=== PATIENT | male | born 1990 | race African-American/Black ===

== ENCOUNTER 2017-02-02 10:30 | Inpatient (IN) | payer OTHER ==
[2017-02-02 11:39] VITALS: BMI 21.7
[2017-02-02] MEDS ORDERED: LOPERAMIDE HCL 2 MG CAPSULE PO PRN (12:18)
[2017-02-02] MEDS ORDERED: diphenhydrAMINE HCL 50 MG CAPSULE PO PRN (12:18)
[2017-02-02] MEDS ORDERED: P-EPHED 60MG/TRIPROLIDI 2.5MG TABLET PO PRN (12:18)
[2017-02-02] MEDS ORDERED: NICOTINE POLACRILEX 2 MG GUM BC PRN (12:18)
[2017-02-02] MEDS ORDERED: MAGNESIUM CITRATE 300 ML BOTTLE PO PRN (12:18)
[2017-02-02] MEDS ORDERED: IBUPROFEN 400 MG TABLET (FP) PO PRN (12:18)
[2017-02-02] MEDS ORDERED: MAGNESIUM HYDROX 2400MG/30ML ORAL SUSPENSION 30 ML CUP PO PRN (12:18)
[2017-02-02] MEDS ORDERED: MENTHOL/PHENOL 1 EACH UD MM PRN (12:18)
[2017-02-02] MEDS ORDERED: hydrOXYzine PAMOATE 50 MG CAPSULE (FP) PO PRN (12:18)
[2017-02-02] MEDS ORDERED: guaiFENesin/D-METHORPHAN HB 10 ML UNIT-DOSE CUPS PO PRN (12:18)
[2017-02-02] MEDS ORDERED: ACETAMINOPHEN 325 MG TABLET (FP) PO PRN (12:18)
[2017-02-02] MEDS ORDERED: MAG HYDROX/AL HYDROX/SIMETH 30 ML UNIT-DOSE CUP PO PRN (12:18)
--- NOTE | 2017-02-02 12:28 | HP ---
COWS - Scale Resting Pulse: 0= [place] 80 or Below Sweatin=Flushed/Facial Moisture Restless Observation: 3= Extraneous Movement Pupil Size: 2= Moderately Dilated Bone or Joint Aches: 2= Severe Diffuse Aches Runny Nose/ Eye Tearin= Runny Nose/Eyes GI Upset > 30mins: 2= Nausea/Diarrhea Tremor Observation: 2= Slight Tremor Visible Yawning Observation: 2= >3x During Session Anxiety or Irritability: 2=Irritable/Anxious Goose Flesh Skin: 3=Piloerection COWS Score: 22 CIWA Score - CIWA Score Nausea/Vomitin Muscle Tremors: 4-Moderate,w/Arms Extend Anxiety: 4-Mod. Anxious/Guarded Agitation: 4-Moderately Restless Paroxysmal Sweats: 3 Orientation: 0-Oriented Tacttile Disturbances: 0-None Auditory Disturbances: 0-None Visual Disturbances: 0-None Headache: 0-None Present CIWA-Ar Total Score: 17 Admission ROS BHS - HPI Chief Complaint: Withdrawal sx. Allergies/Adverse Reactions: Allergies Allergy/AdvReac Type Severity Reaction Status Date / Time No Known Allergies Allergy Verified 02/02/17 12:06 History of Present Illness: 26 y/o man with hx. of heroin,alcohol & klonopin dependence is admitted for detox. Pt. has been in previous detox,denies significant period drug free. Exam Limitations: No Limitations - Ebola screening Have you traveled outside of the country in the last 21 days: No Have you had contact with anyone from an Ebola affected area: No Have you been sick,other than usual withdrawal symptoms: No - Review of Systems Constitutional: Diaphoresis EENT: reports: Nose Congestion Respiratory: reports: No Symptoms reported Cardiac: reports: No Symptoms Reported GI: reports: Nausea, Abdominal cramping : reports: No Symptoms Reported Musculoskeletal: reports: Back Pain, Joint Pain, Muscle Pain Integumentary: reports: Sweating Neuro: reports: Seizure (1st & last in 2011), Tremors Endocrine: reports: No Symptoms Reported Hematology: reports: No Symptoms Reported Psychiatric: reports: No Sypmtoms Reported Other Systems: Reviewed and Negative Patient History - Patient Medical History Hx Anemia: No Hx Asthma: No Hx Chronic Obstructive Pulmonary Disease (COPD): No Hx Cancer: No Hx Cardiac Disorders: No Hx Congestive Heart Failure: No Hx Hypertension: No Hx Hypercholesterolemia: No Hx Pacemaker: No HX Cerebrovascular Accident: No Hx Seizures: Yes (2011) Hx Dementia: No Hx Diabetes: No Hx Gastrointestinal Disorders: No Hx Liver Disease: Yes (hep c) Hx Genitourinary Disorders: No Hx Sexually Transmitted Disorders: No Hx Renal Disease (ESRD): No Hx Thyroid Disease: No Hx Human Immunodeficiency Virus (HIV): No Hx Hepatitis C: Yes (needs treatment) Hx Depression: Yes (lexapro prescribed but does not take it.Remeron) Hx Suicide Attempt: No Hx Bipolar Disorder: No Hx Schizophrenia: No - Patient Surgical History Past Surgical History: Yes Hx Abdominal Surgery: Yes (lt. inguinal hernia repair) - PPD History Previous Implant?: Yes Documented Results: Negative w/o proof PPD to be Administered?: Yes - Smoking Cessation Smoking history: Current every day smoker Have you smoked in the past 12 months: Yes Aproximately how many cigarettes per day: 20 Hx Chewing Tobacco Use: No Initiated information on smoking cessation: Yes 'Breaking Loose' booklet given: 02/02/17 - Substance & Tx. History Hx Alcohol Use: Yes Hx Substance Use: Yes Substance Use Type: Alcohol, Cocaine, Heroin Hx Substance Use Treatment: Yes (Detox) - Substances Abused Alcohol Route: Oral Frequency: Daily Amount used: vodka 1 pint Age of first use: 19 Date of Last Use: 02/01/17 Benzodiazepine (Klonopin) Route: Oral Frequency: Daily Amount used: 2mg Age of first use: 21 Date of Last Use: 02/01/17 Heroin Route: Injection Frequency: Daily Amount used: 6-7 bags Age of first use: 21 Date of Last Use: 02/01/17 Cocaine Route: Injection Frequency: Daily Amount used: $100.00 Age of first use: 25 Date of Last Use: 02/02/17 Family Disease History - Family Disease History Family Disease History: Heart Disease: Grandparent ([place],Stroke), Other: Grandparent, Mother (OD on heroin) Admission Physical Exam S - Vital Signs Vital Signs: Vital Signs - 24 hr 02/02/17 11:35 Temperature 98.1 F Pulse Rate 64 Respiratory 18 Rate Blood Pressure 125/57 - Physical General Appearance: Yes: Tremorous, Irritable, Sweating, Anxious HEENTM: Yes: Nasal Congestion, Rhinorrhea Respiratory: Yes: Chest Non-Tender, Lungs Clear, Normal Breath Sounds Neck: Yes: Supple Breast: Yes: Breast Exam Deferred Cardiology: Yes: Regular Rhythm, Regular Rate, S1, S2 Abdominal: Yes: Normal Bowel Sounds, Non Tender, Flat, Soft Genitourinary: Yes: Within Normal Limits Musculoskeletal: Yes: Within Normal Limits Extremities: Yes: Tremors Neurological: Yes: Fully Oriented, Alert Integumentary: Yes: Diaphoresis Lymphatic: Yes: Within Normal Limits - Diagnostic (1) Opioid dependence with withdrawal Current Visit: Yes Status: Acute (2) Sedative, hypnotic or anxiolytic dependence with withdrawal, uncomplicated Current Visit: Yes Status: Acute (3) Alcohol dependence with uncomplicated withdrawal Current Visit: Yes Status: Acute (4) Hep C w/o coma, chronic Current Visit: Yes Status: Acute Cleared for Admission [facility] - Detox or Rehab [facility] Level of Care: Medically Managed Detox Regimen/Protocol: Methadone/Valium [facility] Breath Alcohol Content Breath Alcohol Content: 0 Urine Drug Screen - Results Urine Drug Screen Results: MARIA EUGENIA-Cocaine, OPI-Opiates, MTD-Methadone
[2017-02-02] MEDS ORDERED: diazePAM 5 MG TABLET PO ONE (13:45)
[2017-02-02] MEDS ORDERED: METHADONE HCL 10 MG TABLET (FOR DETOX USE ONLY) PO ONE ×2 (13:45→23:00)
--- NOTE | 2017-02-02 14:24 | CONSULT ---
[facility] Psychiatric Consult - Data Date of interview: 02/02/17 Admission source: [facility] Identifying data: This is 26 years old male with psychiatric hospitalization history intoxicated with:". Alcohol, Opioids, Cocaine and Xanax Substance Abuse History: - Smoking Cessation. Smoking history: Current every day smoker. Have you smoked in the past 12 months: Yes. Aproximately how many cigarettes per day: 20. Hx Chewing Tobacco Use: No. Initiated information on smoking cessation: Yes. 'Breaking Loose' booklet given: 02/02/17. - Substance & Tx. History. Hx Alcohol Use: Yes. Hx Substance Use: Yes. Substance Use Type : Alcohol, Cocaine, Heroin. Hx Substance Use Treatment: Yes (Detox). - Substances Abused. Alcohol. Route: Oral. Frequency: Daily. Amount used: vodka 1 pint. Age of first use: 19. Date of Last Use: 02/01/17. Benzodiazepine (Klonopin). Route: Oral. Frequency: Daily. Amount used: 2mg. Age of first use: 21. Date of Last Use: 02/01/17. Heroin. Route: Injection. Frequency: Daily. Amount used: 6-7 bags. Age of first use: 21. Date of Last Use: 02/01/17. Cocaine. Route: Injection. Frequency: Daily. Amount used: $100.00. Age of first use: 25. Date of Last Use: 02/02/17 Medical History: HepC+ Psychiatric History: Patient reports history of anxiety and insomnia, reportas taking prior to admission: Remeron 15mg po qhs Physical/Sexual Abuse/Trauma History: Denies Additional Comment: Remeron 15mg po qhs Mental Status Exam - Mental Status Exam Alert and Oriented to: Person Cognitive Function: Fair Patient Appearance: Well Groomed Mood: Anxious Affect: Mood Congruent Patient Behavior: Talkative Speech Pattern: Appropriate Voice Loudness: Mildly Loud Thought Process: Goal Oriented Thought Disorder: Being Controlled Hallucinations: Denies Suicidal Ideation: Denies Homicidal Ideation: Denies Insight/Judgement: Fair Sleep: Fair Appetite: Weight loss Muscle strength/Tone: Normal Gait/Station: Normal Additional Comments: Remeron 15mg po qhs Psychiatric Findings - Problem List ([place] 1, 2,3) (1) Alcohol dependence with uncomplicated withdrawal Current Visit: Yes Status: Acute (2) Opioid dependence with withdrawal Current Visit: Yes Status: Acute (3) Sedative, hypnotic or anxiolytic dependence with withdrawal, uncomplicated Current Visit: Yes Status: Acute (4) Drug-induced mood disorder Current Visit: Yes Status: Acute - Initial Treatment Plan Initial Treatment Plan: Remeron 15mg po qhs
[2017-02-02] MEDS: diazePAM 5 MG TABLET PO SCH ×2 (15:10→22:22)
[2017-02-02] MEDS: NICOTINE 21 MG/24 HOURS TOPICAL PATCH TD SCH (15:18)
[2017-02-02 18:19] LABS: URINE APPEARANCE CLEAR; URINE BILIRUBIN NEGATIVE (NEGATIVE); URINE BLOOD NEGATIVE (NEGATIVE); URINE COLOR YELLOW; URINE GLUCOSE (UA) NEGATIVE (NEGATIVE); URINE KETONE NEGATIVE (NEGATIVE); URINE LEUK ESTERASE NEGATIVE (NEGATIVE); URINE NITRITE NEGATIVE (NEGATIVE); URINE PROTEIN NEGATIVE (NEGATIVE); URINE UROBILINOGEN NEGATIVE E.U./dl (0.2-1.0)
[2017-02-02] MEDS: THIAMINE HCL 100 MG TABLET (FP) PO SCH (22:22)
[2017-02-02] MEDS: MIRTAZAPINE 15 MG TABLET (FP) PO SCH (22:22)
[2017-02-03] MEDS: diazePAM 5 MG TABLET PO SCH ×3 (05:49→22:18)
--- NOTE | 2017-02-03 09:23 | EKG ---
Test Reason : Blood Pressure : / mmHG Vent. Rate : 049 BPM Atrial Rate : 049 BPM P-R Int : 152 ms QRS Dur : 088 ms QT Int : 478 ms P-R-T Axes : 070 084 066 degrees QTc Int : 431 ms SINUS BRADYCARDIA WITH SINUS ARRHYTHMIA ABNORMAL ECG WHEN COMPARED WITH ECG OF 02-FEB-2017 14:30, QT HAS SHORTENED Confirmed by AMY MCMAHON MD ([id number]) on 02/03/2017 9:22:41 AM Referred By: Confirmed By:AMY MCMAHON MD
--- NOTE | 2017-02-03 09:25 | EKG ---
Test Reason : Blood Pressure : / mmHG Vent. Rate : 060 BPM Atrial Rate : 060 BPM P-R Int : 150 ms QRS Dur : 084 ms QT Int : 476 ms P-R-T Axes : 027 080 061 degrees QTc Int : 476 ms NORMAL SINUS RHYTHM WITH SINUS ARRHYTHMIA T WAVE ABNORMALITY, CONSIDER ANTERIOR ISCHEMIA PROLONGED QT ABNORMAL ECG NO PREVIOUS ECGS AVAILABLE Confirmed by AMY MCMAHON MD ([id number]) on 02/03/2017 9:25:03 AM Referred By: Confirmed By:AMY MCMAHON MD
[2017-02-03] MEDS ORDERED: METHADONE HCL 10 MG TABLET (FOR DETOX USE ONLY) PO SCH (10:00)
[2017-02-03 10:10] LABS: MCH 29.1 pg (25.7-33.7); MCHC 33.4 g/dl (32.0-35.9); MEAN CELL VOLUME 87.1 fl (80-96); MEAN PLT VOLUME 8.1 fl (7.5-11.1); PLATELET COUNT 256 K/MM3 (134-434); RDW 13.5 % (11.9-15.9); WHITE BLOOD COUNT 7.7 K/mm3 (4.0-10.0)
[2017-02-03] MEDS: PRENATAL VITAMINS W/ FOLIC ACID TABLET (FP) PO SCH (11:00)
[2017-02-03] MEDS: NICOTINE 21 MG/24 HOURS TOPICAL PATCH TD SCH (11:00)
[2017-02-03] MEDS: diazePAM 5 MG TABLET PO PRN (11:00)
[2017-02-03 11:38] LABS: SICKLE CELL SCREEN NEGATIVE (NEGATIVE)
[2017-02-03 12:27] LABS: ALBUMIN 3.4 g/dl (3.4-5.0); ALK PHOS 46 U/L (45-117); ANION GAP 8 (8-16); BILIRUBIN,TOTAL 0.5 mg/dL (0.2-1.0); CALCIUM 9.5 mg/dL (8.5-10.1); CO2 30 mmol/L (21-32); COCKROFT - GAULT 128.79; CREATININE 0.9 mg/dL (0.7-1.3); GLUCOSE,RANDOM 96 mg/dL (74-106); SGOT/AST 36 U/L (15-37); SGPT/ALT 61 U/L (12-78); TOT PROT 6.9 g/dl (6.4-8.2)
--- NOTE | 2017-02-03 12:38 | PN ---
[facility] CIWA - CIWA Score Nausea/Vomitin-Mild Nausea/No Vomiting Muscle Tremors: 4-Moderate,w/Arms Extend Anxiety: 4-Mod. Anxious/Guarded Agitation: 3 Paroxysmal Sweats: 3 Orientation: 0-Oriented Tacttile Disturbances: 0-None Auditory Disturbances: 0-None Visual Disturbances: 0-None Headache: 0-None Present CIWA-Ar Total Score: 15 S COWS - Scale Resting Pulse: 0= [place] 80 or Below Sweatin=Flushed/Facial Moisture Restless Observation: 1= Difficult to Sit Still Pupil Size: 0= Normal to Room Light Bone or Joint Aches: 1= Mild Discomfort Runny Nose/ Eye Tearin= Runny Nose/Eyes GI Upset > 30mins: 2= Nausea/Diarrhea Tremor Observation of Outstretched Hands: 2= Slight Tremor Visible Yawning Observation: 1= 1-2x During Session Anxiety or Irritability: 2=Irritable/Anxious Goose Flesh Skin: 0=Smooth Skin COWS Score: 13 S Progress Note (SOAP) Subjective: Anxiety,tremors,sweating,interrupted sleep,restless,muscle aches/spasm. Objective: 02/03/17 12:37 Vital Signs - 8 hr 02/03/17 02/03/17 06:14 09:18 Temperature 97.3 F L 97.2 F L Pulse Rate 63 61 Respiratory 16 18 Rate Blood Pressure 92/61 117/68 Laboratory Tests 02/02/17 02/03/17 15:44 07:00 WBC 7.7 RBC 4.69 Hgb 13.6 Hct 40.8 MCV 87.1 MCHC 33.4 RDW 13.5 Plt Count 256 MPV 8.1 Sickle Cell Screen Negative Urine Color Yellow Urine Appearance Clear Urine pH 5.0 Ur Specific [place] 1.020 Urine Protein Negative Urine Glucose (UA) Negative Urine Ketones Negative Urine Blood Negative Urine Nitrite Negative Urine Bilirubin Negative Urine Urobilinogen Negative Ur Leukocyte Esterase Negative labs noted Assessment: 02/03/17 12:37 Withdrawal sx. Plan: Continue detox
[2017-02-03 13:03] LABS: PLATELET ESTIMATE ADEQUATE (NORMAL)
[2017-02-03] MEDS: MIRTAZAPINE 15 MG TABLET (FP) PO SCH (22:18)
[2017-02-03] MEDS: THIAMINE HCL 100 MG TABLET (FP) PO SCH (22:18)
[2017-02-04] MEDS ORDERED: diazePAM 5 MG TABLET PO SCH (10:00)
[2017-02-04] MEDS ORDERED: METHADONE HCL 5 MG TABLET (FOR DETOX USE ONLY) PO SCH (10:00)
[2017-02-04] MEDS: PRENATAL VITAMINS W/ FOLIC ACID TABLET (FP) PO SCH (10:16)
[2017-02-04] MEDS: NICOTINE 21 MG/24 HOURS TOPICAL PATCH TD SCH (10:16)
--- NOTE | 2017-02-04 10:57 | PN ---
S CIWA - CIWA Score Nausea/Vomitin Muscle Tremors: 2 Anxiety: 2 Agitation: 2 Paroxysmal Sweats: 2 Orientation: 0-Oriented Tacttile Disturbances: 1-Very Mild Itch/Numbness Auditory Disturbances: 1-Very Mild Visual Disturbances: 1-Very Mild Sensitivity Headache: 2-Mild CIWA-Ar Total Score: 15 BHS COWS - Scale Resting Pulse: 1= [place] 81-100 Sweatin= Chills/Flushing Restless Observation: 1= Difficult to Sit Still Pupil Size: 0= Normal to Room Light Bone or Joint Aches: 2= Severe Diffuse Aches Runny Nose/ Eye Tearin= Nasal Congestion GI Upset > 30mins: 2= Nausea/Diarrhea Tremor Observation of Outstretched Hands: 2= Slight Tremor Visible Yawning Observation: 1= 1-2x During Session Anxiety or Irritability: 2=Irritable/Anxious Goose Flesh Skin: 3=Piloerection COWS Score: 16 BHS Progress Note (SOAP) Subjective: interrupted sleep,sweats, shakes and generalized pain Objective: 02/04/17 10:59 Vital Signs - 8 hr 02/04/17 02/04/17 03:30 10:18 Temperature 97.4 F L Pulse Rate 91 H Respiratory 18 20 Rate Blood Pressure 122/80 Laboratory Last Values WBC 7.7 K/mm3 (4.0-10.0) 02/03/17 07:00 RBC 4.69 M/mm3 (4.00-5.60) 02/03/17 07:00 Hgb 13.6 GM/dL (11.7-16.9) 02/03/17 07:00 Hct 40.8 % (35.4-49) 02/03/17 07:00 MCV 87.1 fl (80-96) 02/03/17 07:00 MCHC 33.4 g/dl (32.0-35.9) 02/03/17 07:00 RDW 13.5 % (11.9-15.9) 02/03/17 07:00 Plt Count 256 K/MM3 (134-434) 02/03/17 07:00 MPV 8.1 fl (7.5-11.1) 02/03/17 07:00 Neutrophils % 25.0 % (42.8-82.8) L 02/03/17 07:00 Lymphocytes % 65.0 % (8-40) H 02/03/17 07:00 Monocytes % 5.0 % (3.8-10.2) 02/03/17 07:00 Eosinophils % 5.0 % (0-4.5) H 02/03/17 07:00 Differential Comment Manual diff done 02/03/17 07:00 Platelet Estimate Adequate (NORMAL) 02/03/17 07:00 Sickle Cell Screen Negative (NEGATIVE) 02/03/17 07:00 Sodium 141 mmol/L (136-145) 02/03/17 07:00 Potassium 4.5 mmol/L (3.5-5.1) 02/03/17 07:00 Chloride 103 mmol/L (98-107) 02/03/17 07:00 Carbon Dioxide 30 mmol/L (21-32) 02/03/17 07:00 Anion Gap 8 (8-16) 02/03/17 07:00 BUN 14 mg/dL (7-18) 02/03/17 07:00 Creatinine 0.9 mg/dL (0.7-1.3) 02/03/17 07:00 Creat Clearance w eGFR > 60 (>60) 02/03/17 07:00 Random Glucose 96 mg/dL (74-106) 02/03/17 07:00 Calcium 9.5 mg/dL (8.5-10.1) 02/03/17 07:00 Total Bilirubin 0.5 mg/dL (0.2-1.0) 02/03/17 07:00 AST 36 U/L (15-37) 02/03/17 07:00 ALT 61 U/L (12-78) 02/03/17 07:00 Alkaline Phosphatase 46 U/L (45-117) 02/03/17 07:00 Total Protein 6.9 g/dl (6.4-8.2) 02/03/17 07:00 Albumin 3.4 g/dl (3.4-5.0) 02/03/17 07:00 Urine Color Yellow 02/02/17 15:44 Urine Appearance Clear 02/02/17 15:44 Urine pH 5.0 (5.0-8.0) 02/02/17 15:44 Ur Specific [place] 1.020 (1.005-1.025) 02/02/17 15:44 Urine Protein Negative (NEGATIVE) 02/02/17 15:44 Urine Glucose (UA) Negative (NEGATIVE) 02/02/17 15:44 Urine Ketones Negative (NEGATIVE) 02/02/17 15:44 Urine Blood Negative (NEGATIVE) 02/02/17 15:44 Urine Nitrite Negative (NEGATIVE) 02/02/17 15:44 Urine Bilirubin Negative (NEGATIVE) 02/02/17 15:44 Urine Urobilinogen Negative E.U./dl (0.2-1.0) 02/02/17 15:44 Ur Leukocyte Esterase Negative (NEGATIVE) 02/02/17 15:44 RPR Titer Nonreactive (NONREACTIVE) 02/03/17 07:00 labs noted Assessment: 02/04/17 11:00 withdrawal sx Plan: continue detox
[2017-02-04] MEDS: diazePAM 5 MG TABLET PO PRN ×2 (12:24→17:30)
[2017-02-04 17:31] VITALS: BP 108/60; PULSE 69; TEMP 98.6
--- NOTE | 2017-02-04 18:05 | DS ---
[facility] Detox Discharge Summary Admission Date: 02/02/17 Discharge Date: 02/04/17 - History Present History: Alcohol Dependence, Opioid Dependence, Sedative Dependence Pertinent Past History: seizure disorder, hep C - Physical Exam Results Vital Signs: Vital Signs Temperature 98.6 F 02/04/17 17:30 Pulse Rate 69 02/04/17 17:30 Respiratory Rate 18 02/04/17 17:30 Blood Pressure 108/60 02/04/17 17:30 O2 Sat by Pulse Oximetry (%) Pertinent Admission Physical Exam Findings: withdrawal sx Laboratory Last Values WBC 7.7 K/mm3 (4.0-10.0) 02/03/17 07:00 RBC 4.69 M/mm3 (4.00-5.60) 02/03/17 07:00 Hgb 13.6 GM/dL (11.7-16.9) 02/03/17 07:00 Hct 40.8 % (35.4-49) 02/03/17 07:00 MCV 87.1 fl (80-96) 02/03/17 07:00 MCHC 33.4 g/dl (32.0-35.9) 02/03/17 07:00 RDW 13.5 % (11.9-15.9) 02/03/17 07:00 Plt Count 256 K/MM3 (134-434) 02/03/17 07:00 MPV 8.1 fl (7.5-11.1) 02/03/17 07:00 Neutrophils % 25.0 % (42.8-82.8) L 02/03/17 07:00 Lymphocytes % 65.0 % (8-40) H 02/03/17 07:00 Monocytes % 5.0 % (3.8-10.2) 02/03/17 07:00 Eosinophils % 5.0 % (0-4.5) H 02/03/17 07:00 Differential Comment Manual diff done 02/03/17 07:00 Platelet Estimate Adequate (NORMAL) 02/03/17 07:00 Sickle Cell Screen Negative (NEGATIVE) 02/03/17 07:00 Sodium 141 mmol/L (136-145) 02/03/17 07:00 Potassium 4.5 mmol/L (3.5-5.1) 02/03/17 07:00 Chloride 103 mmol/L (98-107) 02/03/17 07:00 Carbon Dioxide 30 mmol/L (21-32) 02/03/17 07:00 Anion Gap 8 (8-16) 02/03/17 07:00 BUN 14 mg/dL (7-18) 02/03/17 07:00 Creatinine 0.9 mg/dL (0.7-1.3) 02/03/17 07:00 Creat Clearance w eGFR > 60 (>60) 02/03/17 07:00 Random Glucose 96 mg/dL (74-106) 02/03/17 07:00 Calcium 9.5 mg/dL (8.5-10.1) 02/03/17 07:00 Total Bilirubin 0.5 mg/dL (0.2-1.0) 02/03/17 07:00 AST 36 U/L (15-37) 02/03/17 07:00 ALT 61 U/L (12-78) 02/03/17 07:00 Alkaline Phosphatase 46 U/L (45-117) 02/03/17 07:00 Total Protein 6.9 g/dl (6.4-8.2) 02/03/17 07:00 Albumin 3.4 g/dl (3.4-5.0) 02/03/17 07:00 Urine Color Yellow 02/02/17 15:44 Urine Appearance Clear 02/02/17 15:44 Urine pH 5.0 (5.0-8.0) 02/02/17 15:44 Ur Specific [place] 1.020 (1.005-1.025) 02/02/17 15:44 Urine Protein Negative (NEGATIVE) 02/02/17 15:44 Urine Glucose (UA) Negative (NEGATIVE) 02/02/17 15:44 Urine Ketones Negative (NEGATIVE) 02/02/17 15:44 Urine Blood Negative (NEGATIVE) 02/02/17 15:44 Urine Nitrite Negative (NEGATIVE) 02/02/17 15:44 Urine Bilirubin Negative (NEGATIVE) 02/02/17 15:44 Urine Urobilinogen Negative E.U./dl (0.2-1.0) 02/02/17 15:44 Ur Leukocyte Esterase Negative (NEGATIVE) 02/02/17 15:44 RPR Titer Nonreactive (NONREACTIVE) 02/03/17 07:00 labs noted - Medication Discharge Medications: Ambulatory Orders Mirtazapine [Remeron -] 15 mg PO HS 02/02/17 Mirtazapine [Remeron -] 15 mg PO HS #30 tablet 02/02/17 - Diagnosis (1) Alcohol dependence with uncomplicated withdrawal Current Visit: Yes Status: Acute (2) Drug-induced mood disorder Current Visit: Yes Status: Chronic (3) Hep C w/o coma, chronic Current Visit: Yes Status: Acute (4) Opioid dependence with withdrawal Current Visit: Yes Status: Acute (5) Sedative, hypnotic or anxiolytic dependence with withdrawal, uncomplicated Current Visit: Yes Status: Acute - AMA Did Patient Leave Against Medical Advice: Yes
[2017-02-06] MEDS ORDERED: diazePAM 5 MG TABLET PO SCH (10:00)
[2017-02-06] MEDS ORDERED: METHADONE HCL 10 MG TABLET (FOR DETOX USE ONLY) PO SCH (10:00)
[2017-02-07] MEDS ORDERED: METHADONE HCL 5 MG TABLET (FOR DETOX USE ONLY) PO SCH (06:00)
== END 2017-02-04 18:10 | disposition left against medical advice (07) | DRG 770 ==
LOC: YASAS 10:30 → Y3N 13:15
PROVIDERS: ADMIT Internal Medicine; ATTEND Internal Medicine
PROC: HZ2ZZZZ Detoxification Services for Substance Abuse Treatment (ICD-10-PCS; principal; 2017-02-02)
DX: F11.23 Opioid dependence with withdrawal (principal); F13.230 Sedative, hypnotic or anxiolytic dependence with withdrawal, uncomplicated; F10.230 Alcohol dependence with withdrawal, uncomplicated; F14.20 Cocaine dependence, uncomplicated; F17.210 Nicotine dependence, cigarettes, uncomplicated; F19.24 Other psychoactive substance dependence with psychoactive substance-induced mood disorder; B18.2 Chronic viral hepatitis C; Z86.69 Personal history of other diseases of the nervous system and sense organs
CPT/HCPCS: 36415; 80053; 81003; 85027; 85660; 86593; 93005; 93010